=== PATIENT | male | born 1980 | race Two or more races ===

== ENCOUNTER 2020-02-16 22:07 | Emergency (ER) | payer SELFPAY ==
[~2020-02-16] VITALS: Ht 182.9 cm; Wt 127.0 kg
--- NOTE | 2020-02-16 22:30 | NUR ---
ERI FROM STREET, PER RA PT ADMITS TO USING M[employer] HAND SHAPER. PT OPENS EYES TO PAIN. VITAL SIGNS STABLE. RESPIRATIONS EVEN AND UNLABORED. SKIN INTACT. NO ACUTE DISTRESS NOTED AT THIS TIME. PT PLACED IN GOWN AND ON MONITOR, WILL CONTINUE TO MONITOR.
--- NOTE | 2020-02-16 22:45 | NUR ---
URINE COLLECTED AND SENT TO LAB
--- NOTE | 2020-02-16 22:48 | NUR ---
TECHNOLOGY INTERN AT BEDSIDE FOR BLOOD DRAW
[2020-02-16 22:55] LABS: BASOPHILS # (AUTO) 0.1 /CMM (0.0-0.2); BASOPHILS % (AUTO) 0.7 % (0.0-2.0); HEMATOCRIT 41 % (39-51); HEMOGLOBIN 13.6 g/dL (13.5-17.5); LYMPHOCYTES % (AUTO) 37.9 % (20.0-44.0); MEAN CORPUSCULAR HGB CONC 34 g/dl (31.0-36.0); MEAN CORPUSCULAR VOLUME 91 fL (80-96); NEUTROPHILS # (AUTO) 3.7 /CMM (1.8-8.9); NEUTROPHILS % (AUTO) 46.4 % (43.0-81.0); PLATELET COUNT (AUTO) 235 /CMM (150-450); RED BLOOD CELL COUNT(AUTO) 4.43 MIL/uL (4.5-6.0)
[2020-02-16 22:58] LABS: APPEARANCE,URINE Clear (CLEAR); BILIRUBIN,URINE SMALL (NEGATIVE); BLOOD, URINE Negative Ery/uL (NEGATIVE); COLOR,URINE Yellow (YELLOW); KETONES,URINE Negative (NEGATIVE); LEUKOCYTE ESTERASE ,URINE Negative (NEGATIVE); NITRITE, URINE Negative (NEGATIVE); PH,URINE 5.5 (5.0-8.0); PROTEIN,URINE Negative (NEGATIVE); UGLUCOSE Negative (NEGATIVE)
[2020-02-16 23:05] LABS: CALCIUM, SERUM 8.9 mg/dL (8.5-10.1); CARBON DIOXIDE 28 mmol/L (21-32); CHLORIDE 103 mmol/L (98-107); CREATININE 1.2 mg/dL (0.6-1.3); GLUCOSE 102 mg/dL (74-106); POTASSIUM 3.3 mmol/L (3.5-5.1); SODIUM SERUM 138 mmol/L (136-145); UREA NITROGEN, BLOOD 16 mg/dL (7-18)
[2020-02-16 23:11] LABS: ACETAMINOPHEN 0 ug/ml (10-30); ALANINE AMINOTRANSFERASE 55 U/L (12-78); ALBUMIN 3.8 g/dL (3.4-5.0); ALCOHOL, BLOOD < 3 mg/dL (0-0); ALKALINE PHOSPHATASE 83 U/L (46-116); ASPARTATE AMINOTRANSFERASE 32 U/L (15-37); BILIRUBIN,DIRECT 0.2 mg/dL (0.0-0.2); BILIRUBIN,TOTAL 0.7 mg/dL (0.2-1.0); TOTAL PROTEIN, SERUM 7.2 g/dL (6.4-8.2)
[2020-02-16 23:42] LABS: BACTERIA,URINE Few /HPF (None Seen); MUCUS,URINE Few /LPF (None Seen); RBC,URINE 0-2 /HPF (0-2); SQUAMOUS EPITHELIAL CELL,UR Few /HPF (None Seen); WBC,URINE 0-2 /HPF (0-3)
--- NOTE | 2020-02-17 02:03 | NUR ---
PATIENT IS SLEEPING. EASILY AROUSABLE THROUGH TACTILE AND VERBAL STIMULI. BREATHING EVENLY AND UNLABORED ON ROOM AIR. NOT IN ANY DISTRESS. CONNECTED TO MONITOR WITH SITTER AT BEDSIDE.
--- NOTE | 2020-02-17 03:33 | NUR ---
PATIENT IS SLEEPING. EASILY AROUSABLE THROUGH VOICE AND TOUCH. BREATHING EVENLY AND UNLABORED ON ROOM AIR. CONNECTED TO THE MONITOR. WILL CONTINUE TO MONITOR. SITTER AT BEDSIDE.
--- NOTE | 2020-02-17 04:18 | NUR ---
PATIENT IS SLEEPING. PATIENT IS LETHARGIC, BUT EASILY AROUSABLE THROUGH TACTILE AND VERBAL STIMULI. BREATHING EVENLY AND UNLABORED ON ROOM AIR. CONNECTED TO THE MONITOR. SITTER AT BEDSIDE.
--- NOTE | 2020-02-17 05:49 | NUR ---
PATIENT IS LETHARGIC. PATIENT IS UNABLE TO WALK. EASILY AROUSABLE THROUGH TACTILE AND VERBAL STIMULI. NO SOB. BREATHING EVENLY AND UNLABORED ON ROOM AIR. CONNECTED TO MONITOR. SITTER AT BEDSIDE.
--- NOTE | 2020-02-17 09:59 | NUR ---
patient is asleep, arousable to stimuli. Vitals monitored.
--- NOTE | 2020-02-17 17:09 | NUR ---
AMBULATED WITH STEADY GAIT TO THE BATHROOM
--- NOTE | 2020-02-17 17:50 | NUR ---
(pt. ambulatory with a steady gait PT. VERBALIZED UNDERSTANDING OF AFTERCARE INSTRUCTIONS.Patient discharged to home in stable condition. Written and verbal after care instructions given. Patient verbalizes understanding of instruction. Pt refused homeless discharge or placement
[2020-02-17 19:21] VITALS: BP 121/81
== END 2020-02-17 19:22 | disposition home or self-care (01) ==
LOC: ER 22:09
DX: F19.10 Other psychoactive substance abuse, uncomplicated (principal); R94.31 Abnormal electrocardiogram [ECG] [EKG]
CPT/HCPCS: 36415; 80048; 80076; 80305; 80307; 80329; 81001; 85025; 93005; 99285; G0480; 81000-TC